=== PATIENT | male | born 1990 | race Caucasian/White ===

== ENCOUNTER 2016-09-25 06:32 | Emergency (ER) | payer BC ==
--- NOTE | 2016-09-25 06:36 | EDPHY ---
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 He has been able to spontaneously reduce in the past and injured this shoulder yesterday while rock climbing at 4:00 p.m.. He had both hands on the wall and his feet cut loose and he loaded up his left shoulder and felt it dislocate. He presents with left shoulder pain which is worse with any movement does not radiate and not associated with weakness or numbness in the left hand. Symptoms are moderate in terms of pain and present since his injury yesterday afternoon REVIEW OF SYSTEMS: Eye: no change in vision ENT: no sore throat Cardiac: no chest pain or syncope Pulmonary: no cough or SOB Abdomen: no vomiting, diarrhea, abdominal pain Musculoskeletal: HPI Skin: no rash Neuro: no headache Constitutional: no fever : no urinary symptoms A comprehensive 10 point review of systems is otherwise negative aside from elements mentioned in the history of present illness. PAST MEDICAL HISTORY: [place] tooth surgery, shoulder injuries as above Social history: Nonsmoker, student assistant. General Appearance: Alert and conversant, cooperative. Eyes: No scleral icterus. ENT, Mouth: Normal mucous membranes. Normal pharynx. Respiratory: Normal respiratory effort, breath sounds equal, lungs are clear to auscultation. Cardiovascular: Regular rate and rhythm. Gastrointestinal: Abdomen is soft and non tender. Neurological: Alert and oriented x3. Normally conversant. Face symmetric, normal movement and sensation in all extremities. Skin: Warm and dry, no rashes. No abrasion or laceration left shoulder. Musculoskeletal: Left shoulder AC step-off. No clavicular or humeral tenderness. Normal left elbow and wrist. Normal left radial pulse and normal motor and sensory in the left hand. Psychiatric: Not agitated. Emergency Department course/MDM: Normal sensation in both axillary nerve distributions bilaterally over the deltoid. X-ray shows left anterior shoulder dislocation personally interpreted by myself. Scapular manipulation unsuccessful, likely due to time since injury. last food intake last night at 7:00 p.m., last water intake 2-3 hours prior to arrival. Warned, mandatory orthopedic follow-up this week. Constitutional: Initial Vital Signs Temperature (C) 36.3 C 09/25/16 06:45 Heart Rate 75 09/25/16 06:45 Respiratory Rate 16 09/25/16 06:45 Blood Pressure 147/89 H 09/25/16 06:45 O2 Sat (%) 97 09/25/16 06:45 O2 Delivery Mode Room Air O2 (L/minute) 15 Allergies/Adverse Reactions: No Known Allergies Allergy (Unverified 09/25/16 06:46) Home Medications: Medication Instructions Recorded oxyCODONE/APAP 5/325 [Percocet] 1 - 2 tab PO Q4-6PRN PRN #11 tab 09/25/16 Medical Decision Making - Diagnostics Imaging: Postreduction shoulder x-ray personally interpreted by myself shows good reduction with no fracture. Procedures: Procedure: Procedural sedation. Indication: Shoulder reduction A pre-sedation evaluation was completed on the patient at 650 including medical history, allergies and medications, last oral intake, previous experience with sedation, airway assessment, physical examination. Patient is an appropriate candidate for procedural sedation. The risks, benefits, and alternatives of the sedation were discussed with the patient including but not limited to need for airway intervention, cardiovascular complications, ; and consent obtained. The patient is ASA class 1E.Mallampati and 3/3/2 airway assessments were completed. A time out was completed. The patient was sedated with propofol. The patient was monitored with continuous pulse oximetry, senior energy trader and end tidal CO2. There were no complications and no significant hypoxemia. I remained at the bedside for the sedation. The total time I spent in the procedural sedation was 12 minutes. At 720 the patient is alert, awake, and back to neurological and respiratory baseline. Procedure: Dislocation reduction. Indication: Dislocation of the left glenohumeral joint. Risks, benefits, alternatives discussed with the patient including but not limited to fracture, nerve or blood vessel injury, and consent obtained. A timeout was completed. The shoulder was reduced in the usual fashion without complications. Post reduction the patient's neurovascular exam is normal. Post reduction x-ray demonstrates reduction of the joint to the anatomic position. The procedure was performed by myself. Differential Diagnosis: Differential considered including but not limited to shoulder dislocation, biceps tendon rupture, clavicular injury, AC separation. - Data Points Medications Given: Discontinued Medications Fentanyl (Sublimaze) 50 mcg IVP EDNOW ONE Stop: 09/25/16 07:10 Last Admin: 09/25/16 07:22 Dose: 50 mcg Sodium Chloride (Ns) 1,000 mls @ 0 mls/hr IV ONCE ONE PRN Reason: Wide Open Stop: 09/25/16 07:11 Last Admin: 09/25/16 07:22 Dose: 1,000 mls Propofol (Diprivan) 100 mg IVP EDNOW ONE Stop: 09/25/16 07:10 Last Admin: 09/25/16 07:22 Dose: 100 mg Departure - Departure Disposition: Home, Routine, Self-Care Clinical Impression: Dislocation, shoulder, anterior Qualifiers: Encounter type: initial encounter Laterality: left Qualified Code(s): S43.015A - Anterior dislocation of left humerus, initial encounter Condition: Good Instructions: Shoulder Dislocation (ED) Additional Instructions: sling and limited use of left arm until OK by followup orthopedist. Referrals: Tad Edmondson MD [Medical Doctor] - As per Instructions (ortho referral) Prescriptions: oxyCODONE/APAP 5/325 [Percocet] 1 - 2 tab PO Q4-6PRN PRN #11 tab PRN Reason: Pain
[2016-09-25] MEDS ORDERED: fentaNYL 100 MCG/2 ML INJ ONE (06:56)
[2016-09-25] MEDS ORDERED: PROPOFOL 200 MG/20 ML VIAL ONE (06:56)
[2016-09-25] MEDS ORDERED: PROPOFOL 200 MG/20 ML VIAL IVP ONE (07:09)
[2016-09-25] MEDS ORDERED: fentaNYL 100 MCG/2 ML INJ IVP ONE (07:09)
[2016-09-25] MEDS ORDERED: NS 1,000 ML IV ONE (07:10)
[2016-09-25 07:27] VITALS: RESP 16
[2016-09-25 07:36] VITALS: BP 121/77; PULSE 68; TEMP 98.2; O2SAT 96
== END 2016-09-25 07:45 | disposition home or self-care (01) ==
PROC: 0RSKXZZ Reposition Left Shoulder Joint, External Approach (ICD-10-PCS; principal; 2016-09-25)
DX: S43.015A Anterior dislocation of left humerus, initial encounter (principal); X58.XXXA Exposure to other specified factors, initial encounter; Y99.8 Other external cause status; Y93.31 Activity, mountain climbing, rock climbing and wall climbing
CPT/HCPCS: 96374; A4565; J2704; J3010